=== PATIENT | female | born 1970 | race Caucasian/White ===

== ENCOUNTER 2021-04-01 11:50 | Emergency (ER) | payer OTHER, MEDICAID, SELFPAY ==
[2021-04-01 11:55] VITALS: BP 138/89; PULSE 98; RESP 14; TEMP 36.4; O2SAT 99; BMI 18.3
[2021-04-01 12:06] LABS: Add Manual Diff / Slide Review NO; Basophils Absolute Auto 0 /uL (0-100); Basophils Percent Auto 0.3 % (0-2); Eosinophils Absolute Auto 200 /uL (0-450); Hematocrit 40.7 % (36-46); Hemoglobin 13.1 g/dL (12.0-16.0); Lymphocytes Absolute Auto 1900 /uL (1100-4500); Lymphocytes Percent Auto 20.1 % (25-40); Mean Corpuscular HGB Conc 32.3 % (30-36); Mean Corpuscular Hemoglobin 26.3 PG (26-34); Mean Corpuscular Volume 81.5 fL (80-100); Monocytes Absolute Auto 600 /uL (0-900); Monocytes Percent Auto 6.3 % (3-14); Neutrophils Absolute Auto 6700 /uL (1500-7000); Neutrophils Percent Auto 71.3 % (50-75); Platelet Count 361 X10^3/uL (150-400); White Blood Cell Count 9.5 X10^3/uL (4.5-11.0)
[2021-04-01] MEDS: HYDROMORPHONE 0.5 MG INJ IV (12:08)
[2021-04-01] MEDS: ONDANSETRON 4 MG/2 ML INJ IV (12:09)
[2021-04-01 12:26] LABS: Alanine Aminotransferase 13 IU/L (<35); Albumin Globulin Ratio 1.3 (1.0-2.8); Alkaline Phosphatase 78 U/L (38-126); Aspartate Aminotransferase 21 IU/L (14-36); BUN Creatinine Ratio 17.5 (6-22); Bilirubin Total 0.4 mg/dL (0.2-1.3); Blood Urea Nitrogen 10 mg/dL (7-17); Calcium 9.9 mg/dL (8.4-10.2); Carbon Dioxide 29 mmol/L (22-32); Chloride 101 mmol/L (98-107); Estimated Glomerular Filt Rate > 60.0 mL/min (>60); Glucose 98 mg/dL (70-100); HEMOLYSIS 48 (0-50); Lipase 37 U/L (23-300); Sodium 136 mmol/L (137-145)
--- NOTE | 2021-04-01 13:38 | DI.CT.S_ITS ---
PROCEDURE: CT KIDNEY URETER BLADDER (KUB) INDICATIONS: flank pain TECHNIQUE: Axial sections were acquired from the lung bases to the pubic symphysis. Coronal and sagittal reformats were performed. For radiation dose reduction, the following was used: automated exposure control, adjustment of mA and/or kV according to patient size. COMPARISON:[facility], CT, CT ABDOMEN PELVIS WITH CONTRAST, 07/16/2016, 20:49. [facility], CT, CT ABDOMEN PELVIS WITH CONTRAST, 03/12/2015, 15:10. [facility], CT, CT KUB, 01/27/2021, 15:43. FINDINGS: Image quality: Excellent. Lung bases: Unremarkable. Heart: No significant findings. URINARY: Tiny punctate calcifications in kidneys bilaterally, compatible with tiny nonobstructive renal calculi. No hydronephrosis or hydroureter. Bladder wall is normal in thickness. No stones. ABDOMEN: Liver: There is a 0.6 cm nodule in the left hepatic lobe, most likely a cyst. Gallbladder: Unremarkable. Biliary ducts: Unremarkable. Pancreas: Unremarkable. Spleen: Unremarkable. Adrenal Glands: Unremarkable. Stomach and Bowel: There are surgical sutures in the cecum. Appendix is absent. Small bowel and colon loops are normal in caliber without wall thickening. Peritoneum: No abnormal intraperitoneal fluid. No free air. Ventral Wall: No hernia. Abdominal Nodes: No enlarged retroperitoneal or mesenteric lymph nodes. Vessels: Aorta and inferior vena cava are normal in size. PELVIS: Pelvic Organs: Uterus is normal. Bilateral tubal ligations. There is a 1.7 cm cyst in the right ovary. Pelvic Nodes: Unremarkable. Miscellaneous: No inguinal hernias are seen. Bones: Sclerotic changes in sacroiliac joints bilaterally consistent with sacroiliitis. IMPRESSION: 1. Punctate nonobstructive renal calculi are present. No hydronephrosis. 2. A 1.7 cm right ovarian cyst. 3. Bilateral sacroiliitis. Dictated by: Mary Ellen Silva M.D. on 04/01/2021 at 14:22 Approved by: Mary Ellen Silva M.D. on 04/01/2021 at 14:29
[2021-04-01 14:00] LABS: Bacteria Urine Few (2-10); Calcium Oxalate Crystals Urine Few; Mucus Urine 2+ (Negative); RBC Urine 1-5/HPF (0-5/HPF); Squamous Epithelial Cell Urine 1-5 /HPF (0-5/HPF); WBC Urine 0-1/HPF (0-5/HPF)
[2021-04-01 14:06] VITALS: BP 148/78; PULSE 80; RESP 15; O2SAT 99
--- NOTE | 2021-04-01 15:14 | ED_ITS ---
HPI - Abdominal Pain General Chief Complaint: Abdominal Pain Stated Complaint: abdominal/ flank Time Seen by Provider: 04/01/21 12:04 Source: patient and EMS Mode of arrival: EMS Limitations: no limitations History of Present Illness HPI narrative: 50-year-old woman with a history of chronic pain currently on 16- 24 mg of Suboxone provided by her physician, whom she sees on a gamino basis only. She has a history of left-sided pain that is chronic and today was significantly worse. She complains about pain in the left flank but actually points to the left lower lung grimes on exam. She denies fever, cough, chills, vomiting, diarrhea. She states the pain is sharp and stabbing. She has a history of kidney stones in the past and believes that she may have another kidney stone. She is currently menstruating and does have hematuria. Regarding her menstrual cycles she also notes that they have gotten very irregular and current cycle has been ongoing for approximately 20 days. She does not describe hot flashes insomnia or memory abnormalities that might be associated with menopause. Related Data Home Medications Medication Instructions Recorded Confirmed buprenorphine 8 mg-naloxone 2 mg 1 film SUBLINGUAL TID 04/01/21 04/01/21 sublingual film (Suboxone) dextroamphetamine-amphetamine 10 20 mg PO BID 04/01/21 04/01/21 mg tablet Allergies Allergy/AdvReac Type Severity Reaction Status Date / Time ciprofloxacin [From Cipro] Allergy Intermediate Hives Verified 04/01/21 11:58 Review of Systems Review of Systems Narrative: Remainder of complete review of systems is otherwise unremarkable except for that included in the HPI. Patient History Medical History (Updated 04/01/21 @ 20:08 by Vonda Flores MD) Chronic abdominal pain Chronic flank pain H/O Crohn's disease Social History Smoking Status: Current every day smoker Smoking Status: Current every day smoker alcohol intake frequency: other Substance Use Type: does not use Exam Narrative Exam Narrative: General: Thin and chronically ill-appearing woman in no acute distress. Able to give a complete and coherent history. Well-nourished well- developed HEENT: Moist mucous membranes, normal sclera with reactive pupils, Respiratory: Lungs are clear to auscultation, no wheezing no rales no rhonchi. Full and symmetrical air movement Cardiac: Regular rate and rhythm no murmurs no bruits Abdomen: Scaphoid, no rebound no guarding with good bowel tones. No objective flank pain but she does have some mild tenderness over the left posterior lower ribs. Skin: Warm and dry, no rashes Neurologic: Grossly neurologically intact with no obvious asymmetries or abnorm alities Extremities: No trauma, well perfused Psych: Cooperative, appropriate insight and affect Initial Vital Signs Initial Vital Signs: Vital Signs Temperature 97.6 F 04/01/21 11:55 Pulse Rate 98 H 04/01/21 11:55 Respiratory Rate 14 04/01/21 11:55 Blood Pressure 138/89 04/01/21 11:55 Pulse Oximetry 99 04/01/21 11:55 Course Orders Ordered: ED Orders 04/01/21 11:45 Complete Blood Count AUTO DIFF Stat Comprehensive Metabolic Panel Stat Lipase Stat 04/01/21 13:30 Urine Culture Stat Urine Microscopic Stat 04/01/21 13:38 CT kidney ureter bladder (KUB) Stat Discontinued Medications Hydromorphone HCl (Hydromorphone 0.5 Mg Inj) 0.5 mg IV NOW ONE Stop: 04/01/21 12:05 Last Admin: 04/01/21 12:08 Dose: 0.5 mg Documented by: ZEB Ketorolac Tromethamine (Ketorolac 30 Mg/Ml Vial) 15 mg IV NOW ONE Stop: 04/01/21 15:34 Last Admin: 04/01/21 15:47 Dose: Not Given Documented by: ZEB Ondansetron HCl (Ondansetron 4 Mg/2 Ml Inj) 4 mg IV NOW ONE Stop: 04/01/21 12:01 Last Admin: 04/01/21 12:09 Dose: 4 mg Documented by: ZEB Vital Signs Vital signs: Vital Signs - 8 hr 04/01/21 14:06 04/01/21 15:47 Pulse Rate 80 70 Respiratory Rate 15 14 Blood Pressure 148/78 H 132/78 Pulse Oximetry 99 99 MDM - Abdominal Pain Lab Data Result diagrams: 04/01/21 11:45 04/01/21 11:45 Labs: Lab Results 04/01/21 04/01/21 04/01/21 Range/Units 11:45 11:45 13:30 WBC 9.5 (4.5-11.0) X10^3/uL RBC 5.00 (4.0-5.2) X10^6/uL Hgb 13.1 (12.0-16.0) g/dL Hct 40.7 (36-46) % MCV 81.5 (80-100) fL MCH 26.3 (26-34) PG MCHC 32.3 (30-36) % RDW 15.0 H (11.6-14.8) % Plt Count 361 (150-400) X10^3/uL Neut % (Auto) 71.3 (50-75) % Lymph % (Auto) 20.1 L (25-40) % [place] % (Auto) 6.3 (3-14) % Eos % (Auto) 2.0 (2-4) % Baso % (Auto) 0.3 (0-2) % Neut # (Auto) 6700 (6940-9011) /uL Lymph # (Auto) 1900 (6668-2524) /uL [place] # (Auto) 600 (0-900) /uL Eos # (Auto) 200 (0-450) /uL Baso # (Auto) 0 (0-100) /uL Sodium 136 L (137-145) mmol/L Potassium 4.0 (3.4-5.1) mmol/L Chloride 101 (98-107) mmol/L Carbon Dioxide 29 (22-32) mmol/L BUN 10 (7-17) mg/dL Creatinine 0.57 (0.52-1.04) mg/dL Estimated GFR > 60.0 (>60) mL/min BUN/Creatinine Ratio 17.5 (6-22) Glucose 98 (70-100) mg/dL Calcium 9.9 (8.4-10.2) mg/dL Total Bilirubin 0.4 (0.2-1.3) mg/dL AST 21 (14-36) IU/L ALT 13 (<35) IU/L Alkaline Phosphatase 78 (38-126) U/L Total Protein 7.0 (6.3-8.2) g/dL Albumin 4.0 (3.5-5.0) g/dL Globulin 3.0 (1.7-4.1) g/dL Albumin/Globulin Ratio 1.3 (1.0-2.8) Lipase 37 (23-300) U/L Urine RBC 1-5/hpf (0-5/HPF) Urine WBC 0-1/hpf (0-5/HPF) Ur Squamous Epith Cells 1-5 /hpf (0-5/HPF) Calcium Oxalate Crystal Few H Urine Bacteria Few (2-10) H (None) Urine Mucus 2+ H (Negative) Ur Culture Indicated? Culture not indicate Micro UA Comment Point of care testing: Point of Care Testing Test Results Negative Urine Dip Bedside Urine Glucose Negative Bedside Urine Bilirubin - Negative Bedside Urine Ketone +++ 80 Urine Specific Kirby 1.020 Bedside Urine Occult Blood +++ Bedside Urine pH 6.0 Bedside Urine Protein - Negative Bedside Urine Urobilinogen - Negative Bedside Urine Nitrite - Negative Bedside Urine Leukocytes - Negative Esterase Imaging Data CT scan - abdomen/pelvis: Radiologist's Impression: FINDINGS: Image quality: Excellent. Lung bases: Unremarkable. Heart: No significant findings. URINARY: Tiny punctate calcifications in kidneys bilaterally, compatible with tiny nonobstructive renal calculi. No hydronephrosis or hydroureter. Bladder wall is normal in thickness. No stones. ABDOMEN: Liver: There is a 0.6 cm nodule in the left hepatic lobe, most likely a cyst. Gallbladder: Unremarkable. Biliary ducts: Unremarkable. Pancreas: Unremarkable. Spleen: Unremarkable. Adrenal Glands: Unremarkable. Stomach and Bowel: There are surgical sutures in the cecum. Appendix is absent. Small bowel and colon loops are normal in caliber without wall thickening. Peritoneum: No abnormal intraperitoneal fluid. No free air. Ventral Wall: No hernia. Abdominal Nodes: No enlarged retroperitoneal or mesenteric lymph nodes. Vessels: Aorta and inferior vena cava are normal in size. PELVIS: Pelvic Organs: Uterus is normal. Bilateral tubal ligations. There is a 1.7 cm cyst in the right ovary. Pelvic Nodes: Unremarkable. Miscellaneous: No inguinal hernias are seen. Bones: Sclerotic changes in sacroiliac joints bilaterally consistent with sacroiliitis. IMPRESSION: 1. Punctate nonobstructive renal calculi are present. No hydronephrosis. 2. A 1.7 cm right ovarian cyst. 3. Bilateral sacroiliitis. Dictated by: Mary Ellen Silva M.D. on 04/01/2021 at 14:22 MDM Narrative Medical decision making narrative: 50-year-old woman presents with acute left flank pain with concern for kidney stone. CT scan does not suggest that nor does not suggest other significant abdominal abnormalities. On physical exam she is tender in the left posterior lower lung field and lung base along with lower ribs are equally reassuring on CT scan. Labs show no evidence of infection or renal failure electrolyte abnormalities. In the emergency department she is given L of normal saline, a single dose of Dilaudid and 50 mg of IV Toradol prior to discharge. Explained all of the normal findings, the normal study and encouraged her to follow-up with her primary physician and chronic pain physician. Was not until discharge the really she was also on Suboxone. Surprisingly the single dose of Dilaudid was remarkably effective for her suggesting that she may not actually be taking said Suboxone. Patient was discharged in stable condition and within 2 hours I received phone call from [facility] Emergency Department asking for records regarding this patient who is presenting now to the emergency department with similar complaints. Labs and CT scan will be provided for them to help and further evaluation. Discharge Plan Departure Patient Disposition: Home Clinical Impression: Acute left flank pain Instructions: DI for Abdominal Pain-Adult Activity Restrictions/Additional Instructions: Thank you for coming in today Your workup today does not show any evidence of acute infection, kidney failure, pneumonia or other life-threatening abnormalities. The CT scan of your abdomen does not show any blockage of your kidney or the tubes into your bladder. I do not see any obvious kidney stone causing problems right now. You had a small amount of blood in your urine but I suspect that this is more related to your menstrual cycle rather than a bladder infection. Your urine has been cultured and if it does look like a bladder infection we will call you with appropriate antibiotics. At this time I do not have a full explanation for this flank pain. I can tell you it is not life-threatening and you do not need to be in the hospital. Do continue with your Suboxone and you can mix ibuprofen and Tylenol with Suboxone (they use different receptors). Using 400 mg of ibuprofen (2 [id number] pills) and 1 Tylenol every 6 hours can be very helpful in controlling pain. Please follow-up with your primary care physician. I wish you the best Prescriptions: No Action dextroamphetamine-amphetamine 10 mg tablet 20 mg PO BID RF: 0 buprenorphine-naloxone [Suboxone] 8-2 mg film 1 film sublingual TID RF: 0
--- NOTE | 2021-04-01 15:20 | PC.NURSE ---
800 cc of pre hospital fluids completed w/ Provider order.
[2021-04-01 15:47] VITALS: BP 132/78; PULSE 70; RESP 14; O2SAT 99
== END 2021-04-01 15:48 | disposition home or self-care (01) ==
PROVIDERS: Emergency Provider Emergency Medicine
DX: R10.9 Unspecified abdominal pain (principal); N92.6 Irregular menstruation, unspecified
CPT/HCPCS: 36415; 74176; 80053; 81003; 81015; 81025; 83690; 85025; 87086; 96374; 96375; 99284; J1170; J2405

== ENCOUNTER → 2021-04-09 13:11 | Outpatient (CLI) | payer OTHER, MEDICAID, SELFPAY ==
[2021-04-09 14:11] LABS: Add Manual Diff / Slide Review NO; Basophils Absolute Auto 100 /uL (0-100); Basophils Percent Auto 0.9 % (0-2); Eosinophils Absolute Auto 300 /uL (0-450); Eosinophils Percent Auto 2.6 % (2-4); Hematocrit 39.8 % (36-46); Hemoglobin 12.5 g/dL (12.0-16.0); Lymphocytes Absolute Auto 2100 /uL (1100-4500); Lymphocytes Percent Auto 19.4 % (25-40); Mean Corpuscular HGB Conc 31.5 % (30-36); Mean Corpuscular Hemoglobin 25.8 PG (26-34); Mean Corpuscular Volume 82.1 fL (80-100); Monocytes Absolute Auto 600 /uL (0-900); Monocytes Percent Auto 5.7 % (3-14); Neutrophils Absolute Auto 7600 /uL (1500-7000); Neutrophils Percent Auto 71.4 % (50-75); Platelet Count 395 X10^3/uL (150-400); Red Blood Cell Count 4.85 X10^6/uL (4.0-5.2); Red Cell Distribution Width 15.8 % (11.6-14.8); White Blood Cell Count 10.6 X10^3/uL (4.5-11.0)
[2021-04-09 14:30] LABS: Alanine Aminotransferase 10 IU/L (<35); Albumin 3.7 g/dL (3.5-5.0); Albumin Globulin Ratio 1.2 (1.0-2.8); Alkaline Phosphatase 68 U/L (38-126); Aspartate Aminotransferase 18 IU/L (14-36); BUN Creatinine Ratio 29.8 (6-22); Bilirubin Total < 0.1 mg/dL (0.2-1.3); Blood Urea Nitrogen 14 mg/dL (7-17); Calcium 9.3 mg/dL (8.4-10.2); Carbon Dioxide 29 mmol/L (22-32); Chloride 103 mmol/L (98-107); Estimated Glomerular Filt Rate > 60.0 mL/min (>60); Glucose 121 mg/dL (70-100); HEMOLYSIS < 15 (0-50); Potassium 4.4 mmol/L (3.4-5.1); Sodium 137 mmol/L (137-145); Total Protein 6.7 g/dL (6.3-8.2)
[2021-04-09 15:04] LABS: Thyroid Stimulating Hormone 1.79 uIU/mL (0.47-4.68)
== END ==
PROVIDERS: Referring Provider Family Medicine Addiction Medicine; Visit Provider Family Medicine Addiction Medicine
DX: F31.9 Bipolar disorder, unspecified (principal)
CPT/HCPCS: 36415; 80053; 83735; 84443; 85025